=== PATIENT | male | born 1950 | race Caucasian/White ===

== ENCOUNTER 2018-08-16 08:03 | Outpatient (CLI) | payer MEDICARE ==
--- NOTE | 2018-08-16 13:35 | MRI ---
MRI RIGHT SHOULDER WITHOUT CONTRAST: Date; 08/16/18 INDICATION: Right shoulder pain with limited range of motion. COMPARISON: None. FINDINGS: Motion artifact limits image detail. There is a full thickness tear of the supraspinatus with intratendinous delamination into the conjoin ed tendon and anterior infraspinatus near the footprint. There is prominent tendinosis of the intraar ticular biceps tendon and prominent degenerative signal involving the superior glenoid labrum and bic eps anchor. There is mild osteoarthritic change of the glenohumeral joint. No large full thickness de fect is seen involving the humeral head or glenoid component. AC joint demonstrates mild degenerative change. No muscular atrophy is present. There is a Type II acromion. Biceps tendon remains located. The inferior glenohumeral labral ligamentous complex appears intact. IMPRESSION: 1. 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 2. Prominent tendinosis of intraarticular biceps tendon and prominent degenerative intrasubstance si gnal of superior glenoid labrum and biceps anchor complex. 3. Mild glenohumeral and AC joint osteoarthrosis. POS: [facility]
== END 2018-08-16 08:04 | disposition home or self-care (01) ==
LOC: SCSMRI 08:03
PROVIDERS: ATTEND Orthopaedic Surgery
DX: M25.511 Pain in right shoulder (principal); M19.011 Primary osteoarthritis, right shoulder; M75.121 Complete rotator cuff tear or rupture of right shoulder, not specified as traumatic; M67.813 Other specified disorders of tendon, right shoulder; R93.7 Abnormal findings on diagnostic imaging of other parts of musculoskeletal system

== ENCOUNTER 2018-11-15 10:45 | Outpatient (CLI) | payer MEDICARE ==
[2018-11-15 16:55] LABS: #Eosinphils 0.3 thou/uL (0.0-0.7); #Lymphocytes 1.7 thou/uL (1.20-3.40); #Monocytes 0.6 thou/uL (0.11-0.59); #Neutrophils 4.8 thou/uL (1.40-6.50); %Basophils 0.5 % (0.0-1.0); %Eosinophils 4.3 % (0.0-10.0); %Lymphocytes 22.5 % (21.0-51.0); %Monocytes 8.1 % (0.0-10.0); %Neutrophils 64.6 % (42.0-75.0); Anion Gap 14 mmol/L (10-20); BUN (Urea Nitrogen) 19 mg/dL (8.4-25.7); Calc. Creatinine Clearance 0 mL/min (70-130); Calcium 9.5 mg/dL (7.8-10.44); Carbon Dioxide 24 mmol/L (23-31); Chloride 102 mmol/L (98-107); Estimated GFR-MDRD 70; Glucose 87 mg/dL (80-115); Hemoglobin 14.7 g/dL (14.0-18.0); Mean Corpuscular HGB CONC 32.8 g/dL (32.0-36.0); Mean Corpuscular Hemoglobin 30.6 pg (27.0-31.0); Mean Corpuscular Volume 93.4 fL (78.0-98.0); Mean Platelet Volume 9.4 fL (7.4-10.4); Platelet Count 191 thou/uL (130-400); Potassium 4.5 mmol/L (3.5-5.1); RBC Distribution Width 12.4 % (11.5-14.5); Red Blood Cell (RBC) Count 4.79 mill/uL (4.70-6.10); Sodium 135 mmol/L (136-145); White Blood Cell (WBC) Count 7.5 thou/uL (4.8-10.8)
== END 2018-11-15 10:46 | disposition home or self-care (01) ==
LOC: LABBT 10:45
PROVIDERS: ATTEND Orthopaedic Surgery
DX: Z01.818 Encounter for other preprocedural examination (principal); M75.121 Complete rotator cuff tear or rupture of right shoulder, not specified as traumatic
CPT/HCPCS: 80048; 85025; 93005; 93010

== ENCOUNTER 2018-11-16 13:30 | Outpatient (CLI) | payer MEDICARE | END 2018-11-16 13:31 | disposition home or self-care (01) | LOC: EKG 13:30 | PROVIDERS: ATTEND Orthopaedic Surgery | DX: R94.31 Abnormal electrocardiogram [ECG] [EKG] (principal) | CPT/HCPCS: 93005; 93010 ==